=== PATIENT | female | born 1990 | race African-American/Black ===

== ENCOUNTER 2018-11-25 08:02 | Emergency (ER) | payer MEDICAID ==
[~2018-11-25] VITALS: Ht 154.9 cm; Wt 70.8 kg
[2018-11-25 08:05] VITALS: BP 115/85
--- NOTE | 2018-11-25 08:14 | NUR ---
Patient ambulated to bed 4. RN evaluating patient at bedside.
--- NOTE | 2018-11-25 08:15 | NUR ---
28/f bib self C/O PRODUCTIVE COUGH AND HEADACHE X 4 DAYS. TOOK ROBUTISSIN AND MUCINEX WITHOUT RELIEF. HX: BRONCHITIS.RX: DENIES. DENIES N/V/D; SKIN IS PINK/WARM/DRY; AAOX4 WITH EVEN AND STEADY GAIT; LUNGS CLEAR BL; PATIENT STATES PAIN OF 4/10 AT THIS TIME;PATIENT POSITIONED FOR COMFORT; HOB ELEVATED; BEDRAILS UP X1; BED DOWN. ER MD MADE AWARE OF PT STATUS.
--- NOTE | 2018-11-25 08:19 | NUR ---
Dr. Rogers evaluating patient at bedside.
[2018-11-25 08:31] VITALS: BP 115/85
--- NOTE | 2018-11-25 08:31 | NUR ---
Patient discharged with v/s stable. Written and verbal after care instructions given and explained. Patient alert, oriented and verbalized understanding of instructions. Ambulatory with steady gait. All questions addressed prior to discharge. ID band removed. Patient advised to follow up with PMD. Rx of PROMETHAZINE&ALBUTEROL given. Patient educated on indication of medication including possible reaction and side effects. Opportunity to ask questions provided and answered.
== END 2018-11-25 08:31 | disposition home or self-care (01) ==
LOC: MED 08:02
DX: J40 Bronchitis, not specified as acute or chronic (principal); M54.9 Dorsalgia, unspecified; R51 Headache; F17.200 Nicotine dependence, unspecified, uncomplicated
CPT/HCPCS: 99283